=== PATIENT | male | born 1950 | race Caucasian/White ===

== ENCOUNTER 2016-03-17 09:30 | Inpatient (IN) | payer MEDICARE ==
[2016-03-13 10:44] LABS: BASOPHILS 0.2 % (0.0-2.0); EOSINOPHILS 3.6 % (0-7); HEMATOCRIT 43.8 % (42.0-54.0); HEMOGLOBIN 14.2 g/dL (13.5-17.5); IMMATURE GRANULOCYTES 0.1 % (0-5); LYMPHOCYTES 22.3 % (15-50); MCH 30.9 pg (26.0-34.0); MCHC 32.4 g/dL (31.0-37.0); MCV 95.2 fL (80.0-100.0); MEAN PLATELET VOLUME 9.4 fL (7.4-10.4); MONOCYTES 10.9 % (2-11); NEUTROPHILS 62.9 % (40-80); PLATELET COUNT 249 10x3/uL (130-400); RDW 13.3 % (11.5-14.5); WBC 8.7 10x3/uL (4.8-10.8)
[2016-03-13 11:03] LABS: APTT 27.7 SECONDS (22.8-39.4); INR 1.04 (0.85-1.17); PROTIME 13.4 SECONDS (11.6-15.0)
[2016-03-13 11:04] LABS: CALC OSMOLALITY 280 mosm/kg (275-300); CALCIUM 9.3 mg/dL (8.5-10.1); CARBON DIOXIDE 30.4 mmol/L (21.0-32.0); CHLORIDE - SERUM 105 mmol/L (98-107); GLUCOSE 87 mg/dL (74-106); POTASSIUM - SERUM 4.1 mmol/L (3.5-5.1); SODIUM 141 mmol/L (136-145); UREA NITROGEN 16 mg/dL (7-18); eGFR NON AFRICAN AMERICAN 79 mL/min (90-120)
[2016-03-13 11:26] LABS: APPEARANCE HAZY (CLEAR); BACTERIA FEW /hpf (NONE SEEN); BILIRUBIN NEGATIVE (NEGATIVE); COLOR YELLOW (YELLOW); EPITHELIAL CELLS 0-5 /hpf (0-5); GLUCOSE NEGATIVE (NEGATIVE); KETONE NEGATIVE (NEGATIVE); LEUKOCYTE ESTERASE TRACE (NEGATIVE); MUCUS <1+ /lpf (NONE SEEN); NITRITE NEGATIVE (NEGATIVE); PROTEIN NEGATIVE (NEGATIVE); RED CELLS - URINE 0-5 /hpf (0-5); UROBILINOGEN NORMAL (NORMAL)
[~2016-03-17] VITALS: Ht 185.4 cm; Wt 113.6 kg
[~2016-03-17 09:30] MED LIST: LISINOPRIL-HCTZ1 TA2 PO; MOBIC7.5 MG PO
[2016-03-27 08:04] VITALS: BP 130/75; BMI 33.0
[2016-03-27 08:12] LABS: BASOPHILS 0.2 % (0.0-2.0); EOSINOPHILS 4.5 % (0-7); HEMATOCRIT 41.9 % (42.0-54.0); HEMOGLOBIN 13.8 g/dL (13.5-17.5); IMMATURE GRANULOCYTES 0.1 % (0-5); MCH 31.1 pg (26.0-34.0); MCHC 32.9 g/dL (31.0-37.0); MCV 94.4 fL (80.0-100.0); MEAN PLATELET VOLUME 9.5 fL (7.4-10.4); MONOCYTES 9.9 % (2-11); NEUTROPHILS 67.3 % (40-80); PLATELET COUNT 226 10x3/uL (130-400); RBC 4.44 10x6/uL (4.20-6.10); RDW 13.1 % (11.5-14.5); WBC 8.5 10x3/uL (4.8-10.8)
[2016-03-27 08:26] LABS: CALC OSMOLALITY 285 mosm/kg (275-300); CALCIUM 9.5 mg/dL (8.5-10.1); CARBON DIOXIDE 26.5 mmol/L (21.0-32.0); CHLORIDE - SERUM 106 mmol/L (98-107); GLUCOSE 100 mg/dL (74-106); POTASSIUM - SERUM 4.3 mmol/L (3.5-5.1); SODIUM 142 mmol/L (136-145); UREA NITROGEN 22 mg/dL (7-18); eGFR NON AFRICAN AMERICAN 79 mL/min (90-120)
[2016-03-27 08:56] LABS: APPEARANCE CLEAR (CLEAR); COLOR YELLOW (YELLOW); LEUKOCYTE ESTERASE 1+ (NEGATIVE); NITRITE NEGATIVE (NEGATIVE); PROTEIN NEGATIVE (NEGATIVE); SPECIFIC GRAVITY 1.015 (1.005-1.020)
[2016-03-27 08:57] LABS: BACTERIA FEW /hpf (NONE SEEN); BILIRUBIN NEGATIVE (NEGATIVE); EPITHELIAL CELLS 0-5 /hpf (0-5); GLUCOSE NEGATIVE (NEGATIVE); KETONE NEGATIVE (NEGATIVE); RED CELLS - URINE 0-5 /hpf (0-5); UROBILINOGEN NORMAL (NORMAL)
[2016-03-27 10:10] LABS: APTT 29.5 SECONDS (22.8-39.4); INR 1.01 (0.85-1.17); PROTIME 13.1 SECONDS (11.6-15.0)
--- NOTE | 2016-03-27 14:59 | NUR ---
XRAYS DONE AT BEDSIDE
[2016-03-27 15:19] VITALS: BP 121/65
--- NOTE | 2016-03-27 15:28 | NUR ---
PT RECIEVED FROM RR AWAKE AND ALERT ORINETED X 3 LUNGS CLEAR BILATERALLY NO ACUTE DISTRES SNOTED SCDS TO BILAT EXTREMTIES ICE PACK NOTED TO LEFT KNEE SURGICAL DRESSING INTACT
--- NOTE | 2016-03-27 17:50 | NUR ---
PT AWAKE AND EATING SUPPER MEAL NO ACUTE DISTRESS NOTED DENIES PAIN AT THIS TIME PERIPHERAL PULSE INTACT
[2016-03-27 18:19] VITALS: BP 121/65; Ht 185.4 cm; Wt 113.6 kg
[2016-03-27 19:00] VITALS: BP 110/64
[2016-03-28] VITALS: BP 119/68
[2016-03-28 04:00] VITALS: BP 118/71
[2016-03-28 05:59] LABS: BASOPHILS 0 % (0.0-2.0); EOSINOPHILS 0 % (0-7); HEMOGLOBIN 13.5 g/dL (13.5-17.5); IMMATURE GRANULOCYTES 0.3 % (0-5); LYMPHOCYTES 4.8 % (15-50); MCHC 32.9 g/dL (31.0-37.0); MEAN PLATELET VOLUME 9.7 fL (7.4-10.4); MONOCYTES 6.1 % (2-11); NEUTROPHILS 88.8 % (40-80); PLATELET COUNT 260 10x3/uL (130-400); RBC 4.36 10x6/uL (4.20-6.10); RDW 12.8 % (11.5-14.5)
[2016-03-28 06:03] LABS: WBC 12.6 10x3/uL (4.8-10.8)
[2016-03-28 06:23] LABS: ALBUMIN 3.4 g/dL (3.4-5.0); ALKALINE PHOSPHATASE 63 U/L (46-116); ALT (SGPT) 34 U/L (10-68); BILIRUBIN - TOTAL 0.85 mg/dL (0.2-1.3); CALC OSMOLALITY 281 mosm/kg (275-300); CHLORIDE - SERUM 104 mmol/L (98-107); GLUCOSE 124 mg/dL (74-106); POTASSIUM - SERUM 4.6 mmol/L (3.5-5.1); PROTEIN - SERUM 7.1 g/dL (6.4-8.2); SODIUM 139 mmol/L (136-145); UREA NITROGEN 20 mg/dL (7-18); eGFR NON AFRICAN AMERICAN 79 mL/min (90-120)
--- NOTE | 2016-03-28 07:30 | NUR ---
AWAKE ALERT COLOR ADQ SKIN WARM AND DRY RSP EVEN AND UNLABORED AT PRESENT DSG INTACT TO L KNEE AT PRESENT.
[2016-03-28 07:38] VITALS: BP 122/66
--- NOTE | 2016-03-28 09:15 | NUR ---
MEDS GIVEN JOANA WELL AT PRESENT.
--- NOTE | 2016-03-28 11:00 | NUR ---
TAKING LIQS WELL AND RET AT PRESENT N/C VOICED AT PRESENT.
[2016-03-28 11:47] VITALS: BP 103/54
--- NOTE | 2016-03-28 13:00 | NUR ---
QUIET IN ROOM N/C AT PRESENT DENIES ANY NEEDS AT THIS TIME.
--- NOTE | 2016-03-28 15:00 | NUR ---
QUIET IN CHAIR AT PRESENT DENIES ANY NEEDS AT THIS TIME .
[2016-03-28 15:34] VITALS: BP 108/50
--- NOTE | 2016-03-28 16:30 | NUR ---
* Is the patient Alert and Oriented? Yes 0 * How many steps to enter\exit or inside your home? 0 0 * PCP Dr. Agarwal 0 * Pharmacy [facility] 0 * Preadmission Environment Home with Family 0 * ADLs Independent 0 * List name and contact numbers for known caregivers / representatives who currently or will assist patient after discharge: Giovana Clements [phone] 0 * Additional services required to return to the preadmission environment? Yes 0 * Can the patient safely return to the preadmission environment? Yes 0 * Has this patient been hospitalized within the prior 30 days at any hospital? No 03/28/2016 16:26 DCP: Discharge Planning Patient Name: APOLLO SNYDER Admission Status: Elective Accout number: [id number] Admission Date: 03-27-2016 : 1950 Admission Diagnosis:UNILATERAL PRIMARY OSTEOARTHRITIS, LEFT KNEE Attending: DIONI Current LOS: 1 Anticipated DC Date: 03-29-2016 Planned Disposition: Outpatient PT\OT Primary Insurance: MEDICARE A & B Discharge Planning Comments: CM met with patient to assess dc plans/needs. Patient states he lives at home with his & two adult children. He reports he was independent with all ADL's & IADL's. He has chosen [facility] in [place] for outpatient physical therapy. Appt. scheduled 04/02 @ 1000 - Rx faxed. Walker and CPM have been ordered by MD office through [facility]. Anticipate discharge tomorrow. CM will follow.
--- NOTE | 2016-03-28 18:30 | NUR ---
WATCHING TV QUIETLY AT PRESENT N/C VOICED CPM IN PLACE AT PRESENT.
[2016-03-28 20:00] VITALS: BP 107/54
[2016-03-29] VITALS: BP 105/87
--- NOTE | 2016-03-29 01:35 | NUR ---
ASSESSED AT THE BEGINNING OF THE SHIFT. PT IS ALERT AND ORIENTED, ABLE TO VERBALIZE NEEDS. THE DRESSING TO THE LEFT KNEE IS CLEAN DRY AND INTACT. O2 IS AT 2 LITERS AND HE IS TAKING ORAL PAIN MEDS FOR HIS SURGERY KNEE. HE HAS A URINAL AT THE BEDSIDE AND HE IS ABLE TO TURN AND REPOSITION NEEDED. HE WAS IN CPM DURING THE BEGINNING OF THE SHIFT BUT THEN HE WAS REMOVED. PAIN MEDS HAVE BEEN GIVEN ORDERED. HE IS RESTING QUIET AT THIS TIME AND NO DISTRESS IS NOTED. THE BED IS LOW, RAILS UP X'S 2 WITH THE CALL LIGHT AT HAND.
[2016-03-29 04:00] VITALS: BP 99/52
[2016-03-29 06:04] LABS: HEMATOCRIT 35.6 % (42.0-54.0); HEMOGLOBIN 11.7 g/dL (13.5-17.5); MCH 30.9 pg (26.0-34.0); MCHC 32.9 g/dL (31.0-37.0); MCV 93.9 fL (80.0-100.0); RBC 3.79 10x6/uL (4.20-6.10); RDW 13.4 % (11.5-14.5); WBC 10.6 10x3/uL (4.8-10.8)
--- NOTE | 2016-03-29 07:30 | NUR ---
RECIEVED PT DURING WALKING ROUNDS. PT RESTING IN BED WITH COMPLAINTS OF PAIN OF A 9 ON A SCALE OF 1-10. MEDICATION TO BE GIVEN PER ORDER. ASSESSMENT DONE PER FLOWSHEET. BED IN LOW POSITION AND CALL LIGHT WITHIN REACH. WILL CONTINUE TO MONITOR.
[2016-03-29 08:25] VITALS: BP 111/62
--- NOTE | 2016-03-29 11:11 | NUR ---
WAS CALLED INTO PT ROOM AT THIS TIME DUE TO PT HAVING DROPS OF BLOOD ON THE FLOOR AFTER URINATION. PT HAS NO PAIN OR IRRITATION IN HIS GENITAL REGION. INFORMED PT THAT WE WOULD CONTINUE TO MONITOR, BLOOD COULD POSSIBLY FROM IRRITATION FROM SURGERY. PT SITTING UP IN CHAIR WITH CALL LIGHT IN REACH. WILL CONTINUE TO MONITOR.
--- NOTE | 2016-03-29 12:11 | NUR ---
AWAKE AND ALERT. ORIENTED X3. SITTING UP IN CHAIR AT BEDSIDE. DENIES NEEDS. DRESSING TO LEFT KNEE DRY AND INTACT. REPORTS PAIN ABOUT AN 8. WILL GET PRN MEDS.
[2016-03-29 12:48] VITALS: BP 117/56
--- NOTE | 2016-03-29 15:18 | NUR ---
UP IN CHAIR AT BEDSIDE. C/O LEFT KNEE PAIN LEVEL 8. ICE APPLIED TO AREA. GIVEN ONE HYDROCODONE PO FOR SAME. WILL MONITOR.
[2016-03-29 16:26] VITALS: BP 96/53
--- NOTE | 2016-03-29 18:00 | NUR ---
CPM ON AT 1800.
[2016-03-29 20:00] VITALS: BP 102/51
--- NOTE | 2016-03-29 20:08 | NUR ---
PT SEEN AND ASSESSED AT 1940. COMPLAINS OF MILD PAIN WHILE IN CPM MACHINE TO LEFT KNEE. DRESSING CLEAN DRY AND INTACT WITH ICE BAG NOTED TO KNEE. SCDS ON BILAT. ABLE TO WIGGLE TOES AND LEFT FOOT IS WARM AND PINK. CALL LIGHT IN REACH
[2016-03-30] VITALS: BP 114/56
--- NOTE | 2016-03-30 00:52 | NUR ---
RESTING WELL AT THIS TIME WITH NO C/O NOTED OR VOICED. CHECKED ON OFTEN. C/L IN REACH AT BEDSIDE.
[2016-03-30 04:00] VITALS: BP 126/76
--- NOTE | 2016-03-30 07:35 | NUR ---
PATIENT RECEIVED ALERT IN [place] POSITION. C/O PAIN 11/06. DRESSING TO LEFT KNEE CLEAN, DRY AND INTACT. SIDE RAILS UP X2. BED IN LOW POSITION. CALL LIGHT IN REACH.
[2016-03-30 07:56] VITALS: BP 151/76
--- NOTE | 2016-03-30 09:15 | NUR ---
UP AMBULATING IN HALLWAY WITH PT. NO SIGNS OF DISTRESS NOTED. WILL CONTINUE TO MONITOR.
[2016-03-30] MEDS ORDERED: HYDROCODONE-APA1 TAB PO (09:57)
[2016-03-30] MEDS ORDERED: ELIQUIS2.5 MG PO (09:57)
--- NOTE | 2016-03-30 09:57 | NUR ---
PATIENT SITTING UP IN CHAIR ALERT. NO SIGNS OF DISTRESS NOTED. NORCO ADMINISTERED PER PRN ORDER FOR PAIN 10/06. DENIES FURTHER NEEDS. CALL LIGHT IN REACH.
--- NOTE | 2016-03-30 11:00 | NUR ---
DRESSING TO LEFT KNEE CHANGED. 30 YUSUF INTACT. NO REDNESS, INFLAMMATION OR DRAINAGE NOTED TO SITE. CLEANSED WITH IODINE SWABS. NeurodynEL AG PLACED OVER INCISION
--- NOTE | 2016-03-30 11:27 | NUR ---
Patient for discharge to home today. Alise, primary nurse, advised CM that patient had not received his DME. TC to [facility]. CM received a CB from on-call , Yuli. She spoke directly to the patient then called CM to advise the CPM and walker would be delivered today. CM advised primary nurse and hospital unit coordinator.
--- NOTE | 2016-03-30 11:30 | NUR ---
IV D/C WITH CATH TIP INTACT. SITE COVERED WITH GAUZE AND BANDAID.
--- NOTE | 2016-03-30 13:16 | NUR ---
PATIENT D/C HOME WITH . TRANSFERRED DOWNSTAIRS VIA WITH STAFF. D/C TEACHING AND WRITTEN PRESCRIPTIONS GIVEN TO PATIENT. QUESTIONS ANSWERED.
== END 2016-03-30 13:19 | disposition home or self-care (01) | DRG 470 ==
LOC: D.SDCHOLD 09:30 → D.MS 03-27 07:00 → D.SDCHOLD 03-27 07:00 → D.MS 03-27 13:11
PROVIDERS: Family Medicine; ADMIT Orthopaedic Surgery
PROC: 0SRD0J9 Replacement of Left Knee Joint with Synthetic Substitute, Cemented, Open Approach (ICD-10-PCS; principal; 2016-03-27 09:30)
DX: M17.12 Unilateral primary osteoarthritis, left knee (principal); D62 Acute posthemorrhagic anemia; I10 Essential (primary) hypertension; G47.30 Sleep apnea, unspecified

== ENCOUNTER → 2018-03-05 09:03 | Outpatient (CLI) | payer MEDICARE ==
[2016-03-27 18:19] VITALS: BMI 33.0
[~2018-03-05 09:03] MED LIST changes: +ELIQUIS2.5 MG PO; +HYDROCODONE-APA1 TAB PO
== END | disposition home or self-care (01) ==
LOC: D.MRI 09:00
DX: M17.12 Unilateral primary osteoarthritis, left knee (principal)